=== PATIENT | male | born 1995 | race Two or more races ===

== ENCOUNTER 2020-06-21 23:39 | Emergency (ER) | payer SELFPAY | END 2020-06-22 00:40 | disposition left against medical advice (07) | LOC: ER 23:39 | DX: Z53.21 Procedure and treatment not carried out due to patient leaving prior to being seen by health care provider (principal) ==

== ENCOUNTER 2020-06-22 12:01 | Emergency (ER) | payer SELFPAY ==
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
[2020-06-22 15:33] VITALS: BP 124/73
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
== END 2020-06-22 15:22 | disposition home or self-care (01) ==
LOC: ER 12:01
DX: S81.832A Puncture wound without foreign body, left lower leg, initial encounter (principal); S81.842A Puncture wound with foreign body, left lower leg, initial encounter; W34.00XA Accidental discharge from unspecified firearms or gun, initial encounter
CPT/HCPCS: 93971; 99284

== ENCOUNTER 2020-07-09 11:21 | Emergency (ER) | payer SELFPAY ==
[2020-07-09] MEDS ORDERED: IBUPROFEN 800 MG TABLET PO ONE (12:25)
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
[2020-07-09] MEDS ORDERED: ACETAMINOPHEN WITH CODEINE #3 TABLET PO ONE (13:02)
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
[2020-07-09] MEDS ORDERED: NICOTINE 14 MG/24 HR PATCH.TD24 TD ONE (14:25)
[2020-07-09 15:42] VITALS: BP 121/79
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
== END 2020-07-09 15:42 | disposition home or self-care (01) ==
LOC: ER 11:21
DX: M79.662 Pain in left lower leg (principal); M25.562 Pain in left knee; M79.5 Residual foreign body in soft tissue; F17.200 Nicotine dependence, unspecified, uncomplicated
CPT/HCPCS: 93971; 99284